=== PATIENT | male | born 1975 | race Caucasian/White ===

== ENCOUNTER → 2019-11-30 | Outpatient (CLI) | payer OTHER ==
[~2019-11-30] MED LIST: CELE200C PO; OMEP20TA63 PO
--- NOTE | 2019-11-30 12:43 | PAIN ---
DATE OF SERVICE: 11/30/2019 INITIAL CONSULTATION FOR PAIN CLINIC CHIEF COMPLAINT: Neck and right upper extremity pain. HISTORY OF PRESENT ILLNESS: This is a 43-year-old male who presents with history of pain for about 12 years, increasing in the base of the neck and right upper extremity. Over the time, would go away with chiropractic treatment, traction and physical therapies and exercise and stretching on his own; however, in the last 6 months or so, it has not been going away and is becoming more noticeable in the base of the neck radiating to the right upper extremity, right biceps, into the forearm as well into the thumb and first finger with numbness and tingling and difficulty with tactile motor activities with the right hand. The patient reports some tingling and stinging in the left hand as well. Lately, it has been awakening him from sleep in the right hand with about 3-4 times a night. The patient reports it does not affect his bowel or bladder control or his ability to walk. He has tried physical therapy in the past, again chiropractic treatment and exercise he is currently doing which all seem to decrease the pain temporarily, but lately the pain has not been decreasing like it was in the past. The patient has been taking Celebrex, which also decreased the pain by about 20% also. The patient describes the pain as sharp and stabbing, shooting in the right arm with numbness and tingling in the hands, more on the right, intermittent in intensity, worse with activity. The patient rates his disability rating from 0-10, 10 being the worst, is a 5 with family home responsibilities, 7 with recreation, 8 with occupational activities, 2 with social activity, 3 with sexual behavior, 2 with self-care and 0 with life support activities. The patient did have MRI scan of cervical spine, which shows C5-C6 broad posterior disk osteophyte complex, severe left and mild right neural foraminal narrowing with moderate spinal canal stenosis seen. C6-C7 shows superimposed left paracentral disk protrusion with disk osteophyte complex, disk protrusion contact and deforming left ventral aspect of the spinal cord with focal severe spinal canal stenosis at this level with AP dimension at 6 mm, mild right and [id number] left neural foraminal narrowing as well. The patient reports no loss of motor function, but significant fatigability with the right upper extremity with repetitive motions, driving, raising his right hand over his head or any pushups, situps, weightbearing exercises with the right arm as well. PAST MEDICAL HISTORY: Significant for only some just gastroesophageal reflux, although the patient has been in fairly good health. PREVIOUS SURGERY: Include left shoulder surgery, right ankle surgery, left bunionectomy and tendon repair. CURRENT MEDICATIONS: Include Celebrex on a p.r.n. schedule only. ALLERGIES: The patient has no known drug allergies. FAMILY HISTORY: Significant for heart disease. SOCIAL HISTORY: The patient drinks alcohol about 2-3 times a week, does not smoke, does not use any illegal, illicit or recreational drugs. He is , lives with his spouse, lives locally in [place], [place] and has active duty. REVIEW OF SYSTEMS: The patient's review of systems is positive for those items mentioned in history of present illness. All systems reviewed and otherwise negative. It is complete, full and well documented on the patient's chart. PHYSICAL EXAMINATION: VITAL SIGNS: The patient's blood pressure 157/101, pulse 57, respirations 18, temperature 98.2 degrees Fahrenheit, height is 5 feet 11 inches, weight is 220 pounds. GENERAL: The patient is awake, alert, oriented, appropriate, very pleasant demeanor. HEENT: Head shows normocephalic, atraumatic. Extraocular movements are intact and symmetrical. Oral cavity: Mucous membranes moist and pink. Dentition is intact. NECK: Shows anterior throat supple without palpable lymphadenopathy noted. Swallow reflex symmetrical. CHEST: Shows normal on inspection. Breath sounds clear to auscultation bilaterally. HEART: Shows S1, S2 clear. No murmurs auscultated. ABDOMEN: Soft, nontender, nondistended. No palpable organomegaly is noted. No rebound or guarding demonstrated. BACK: Shows spine grossly in the midline, normal-appearing cervical lordotic curvature, thoracic kyphotic curvature and lumbar lordotic curvature. Cervical paraspinous muscle shows symmetrical on inspection, on palpation shows some moderate tenderness diffusely in the inferior aspect of the cervical paraspinous musculature only and more on the right than the left and the superior medial trapezius. The patient shows good rotational motion of cervical spine with some moderate tenderness reported with extension and with forward flexion as well. The right and left lateral rotations performed past 45 degrees and moderate tenderness to the right, but not to the left. EXTREMITIES: The patient's upper extremities show deep tendon reflexes at 2+ in the biceps and triceps tendons. Motor exam is strong with field service tech strength rated at 5/5 as is bicep and tricep flexion, 4/5 on the right and 5/5 on the left with significant pain with resistance and left triceps and biceps resistance on the right side. Peripheral pulses are 2+ radial. No peripheral edema is noted. Upper extremities are warm and dry to touch, equal in color and appearance. Shoulder shrug is strong and intact without loss of strength on resistance with some moderate tenderness on the right side with resistance in the shoulder and radiating into the anterior deltoid. This is true with abduction of shoulder to 90 degrees, again no loss of strength on resistance, but significant pain reported on the right only. SKIN: The patient's skin shows warm and dry, good turgor. No edema. No sores, rashes or bruises. IMPRESSION: 1. This is a 43-year-old male with a long history of neck and right upper extremity pain greater than left, worse over the past 6 months. 2. MRI scan of cervical spine as noted. 3. Gastroesophageal reflux disease. PLAN: Options were discussed with the patient including conservative medical managements, physical therapies and interventional techniques and as he has been to physical therapy, he is currently doing exercises on his own and stretching as well as chiropractic treatments. He would like to pursue interventional techniques. We discussed a cervical epidural steroid injection using description as well as anatomical models to describe the procedure. The patient will wait for preauthorization with his insurance provider and we will have him return in approximately 1 week for a cervical epidural steroid injection at that time. In the meantime, the patient was given Medrol Dosepak with instructions, side effects to be aware of and will return as follow as scheduled. GLORIA GILLESPIE MD DR: PRAVEEN/jossue JOB#: [id number] / [id number]
== END | disposition home or self-care (01) ==
LOC: PNCL 10:03
PROVIDERS: ATTEND Anesthesiology
DX: K21.9 Gastro-esophageal reflux disease without esophagitis (principal); M79.601 Pain in right arm
CPT/HCPCS: G0463

== ENCOUNTER → 2019-12-08 | Outpatient (CLI) | payer OTHER ==
[~2019-12-08] MED LIST changes: +ASPI81TA50 PO; +ERGO2000 PO; +IOHEXOL 180 MG/ML 10 ML VIAL. ONE; +OMEG100021 PO; +methylPREDNISolone ACETATE 40 MG/ML VIAL. ONE; +methylPREDNISolone ACETATE 80 MG/ML VIAL. ONE
--- NOTE | 2019-12-08 21:17 | PAIN ---
DATE OF SERVICE: 12/08/2019 PROGRESS NOTE FOR PAIN CLINIC DIAGNOSES: Cervical radiculopathy with cervical degenerative disk disease and cervical spinal stenosis. HISTORY OF PRESENT ILLNESS: The patient is a 43-year-old male who returns for followup status post initial evaluation and preauthorization for cervical epidural steroid injection. The patient has obtained that now and would like to proceed. The patient reports pain still in the base of the neck and the bilateral upper extremities, right greater than left. Rates it 9 on a scale of 10 at its worst over the past week, 7 on average, 6 at its least and is a 7 today. The patient reports it is sharp, tingling, radiating, on and off in intensity, worse with activity, repetitive motions of the upper extremities, especially on the right side. The patient reports it awakens him from sleep about every 6 hours. The patient reports no new motor or sensory deficits. We did try Medrol Dosepak after his last visit, which did help with less tingling in the right hand, but this is coming back now. The patient reports no new changes, no new deficits. PHYSICAL EXAMINATION: VITAL SIGNS: The patient's blood pressure is 152/104, pulse 57, respirations 20, temperature 98.1 degrees Fahrenheit, height is 71 inches, weight is 223 pounds. GENERAL: The patient is awake, alert, oriented, appropriate, very pleasant demeanor. The patient is accompanied by his spouse. HEENT: Normocephalic, atraumatic. Extraocular movements are intact and symmetrical. Oral cavity shows mucous membranes moist and pink. Dentition is intact. NECK: Shows anterior throat supple without palpable lymphadenopathy noted. Swallow reflex symmetrical. CHEST: Shows normal on inspection. Breath sounds are clear bilaterally. HEART: Shows S1, S2 clear. No murmurs auscultated. ABDOMEN: Soft, nontender, nondistended. No palpable organomegaly is noted. No rebound or guarding demonstrated. MUSCULOSKELETAL: Shows spine grossly in the midline. Normal appearing thoracic kyphosis and lumbar lordotic curvature. The patient's neck shows full range of motion of cervical spine, both laterally as well as extension and flexion without significant increase in pain or loss of range of motion including extension and flexion. The patient's upper extremities show deep tendon reflexes at 2+ in the biceps and triceps tendons. Motor exam is strong with 5/5 pool finisher strength and 4/5 with right bicep and tricep flexion and 5/5 on the left. Peripheral pulses are 2+ radial. No peripheral edema is noted bilaterally. Options were discussed with the patient. The patient's old chart was reviewed as his current medication regimen updated. Current review of systems updated today as well. We will proceed with a cervical epidural steroid injection today with fluoroscopic guidance. Risks were again discussed including, but not limited to bleeding, infection, possibility of epidural hematoma, subsequent neurological compromise, dural puncture, headaches, spinal cord and/or nerve damage, side effects of steroid medication and poor results regarding pain control. The patient understands and wished to proceed. The patient will return to clinic in approximately 2 weeks for followup. She was counseled on return appointment, activity level and side effects to be aware of. DIAGNOSES: Cervical radiculopathy with cervical degenerative disk disease and cervical spinal stenosis. PROCEDURE: Cervical epidural steroid injection, translaminar approach C6-C7 level using C-arm fluoroscopic guidance under sterile prep and drape using local anesthetic. MEDICATION INJECTED: A total of 120 mg Depo-Medrol plus 5 mL of preservative-free normal saline and 2 mL of contrast. CONDITION AT DISCHARGE: Stable. The patient tolerated the procedure well, had no complications. GLORIA GILLESPIE MD DR: PRAVEEN/jossue JOB#: [id number] / [id number]
== END ==
LOC: PNCL 08:45
PROVIDERS: ATTEND Anesthesiology
DX: M50.123 Cervical disc disorder at C6-C7 level with radiculopathy (principal); M48.02 Spinal stenosis, cervical region
CPT/HCPCS: 62321; J1030; J1040; Q9965